=== PATIENT | male | born 1960 | race Caucasian/White ===

== ENCOUNTER 2017-09-21 10:00 | Emergency (ER) | payer OTHER ==
[~2017-09-21] VITALS: Ht 180.3 cm; Wt 97.5 kg
[~2017-09-21 10:00] MED LIST: ALTACE5 M1 PO; ASPIR 8181 MG PO; AXIRON90 ML PO; COUMADIN 5 MG TA5 M1 PO; DILTIAZEM 24HR360 MG PO; ERYTHROMYCIN E3.5 G3 OPHTHALMIC; GLYBURID-METFO1 EAC2 PO; JANUVIA100 MG PO; LASIX 20 MG TAB20 MG PO; LASIX 40 MG TAB40 M2 PO; LEVEMIR SUBQ; LIPITOR40 MG PO; NEXIUM40 MG PO; OMEPRAZOLE 20 M20 MG PO; POLYMYXIN B/TMP10 ML OP; TESTIM5 GM TD; TRAMADOL 50 MG50 MG PO; XARELTO20 MG PO
[2017-09-21] MEDS ORDERED: CIPROFLOXIN HC2.5 M1 OPHTHALMIC (10:26)
[2017-09-21 10:44] VITALS: BP 113/80
== END 2017-09-21 10:45 | disposition home or self-care (01) ==
LOC: M.ERS 10:00
DX: S05.02XA Injury of conjunctiva and corneal abrasion without foreign body, left eye, initial encounter (principal); I10 Essential (primary) hypertension; I48.91 Unspecified atrial fibrillation; E11.9 Type 2 diabetes mellitus without complications; Z79.4 Long term (current) use of insulin; X58.XXXA Exposure to other specified factors, initial encounter; Y93.89 Activity, other specified; Y92.89 Other specified places as the place of occurrence of the external cause; Y99.8 Other external cause status